=== PATIENT | female | born 1955 | race Caucasian/White ===

== ENCOUNTER 2017-03-22 11:13 | Outpatient (CLI) ==
[2015-12-15 13:51] VITALS: BMI 23.6
--- NOTE | 2017-03-22 13:22 | DEXA ---
Exam: Bone densitometry DEXA scan performed on the besomebody. device. Reason for exam: Surgical menopause. Comparison: None available. FINDINGS: Imaging was obtained of the the right and left hips and are deemed to be adequate for inte rpretation. The BMD of the left femoral neck measures 0.61 grams per centimeter squared. T-score -2.0. Z-score -0.8. The total BMD of the right hip measures 0.800 grams per centimeter squared. T-score -1.7. Z-score -0.8. Total BMD of the left hip measures 0.792 a grams per centimeter squared. T-score -1.7. Z-score 0.9. WHO classification suggests osteopenia in both hips. Impression: 1. WHO classification suggests osteopenia in both hips. 2. WHO fracture risk assessment tool (FRAX) 10-year probability of fracture percentage Major osteoporotic fracture risk 29.3%. Hip fracture risk 4.2%
--- NOTE | 2017-03-25 08:50 | MAMMO ---
EXAM: Bilateral digital screening mammogram History: Screening Comparison: Bilateral mammogram 09/19/2011 Findings: MLO and CC views of bilateral breasts demonstrate scattered fibroglandular breast parenchy ma. There are no dominant masses, no suspicious microcalcifications and no architectural distortions . Stable benign calcification within the right breast. Impression: Benign stable mammogram. Recommend followup routine screening mammography in 1 year. BIRADS 2
== END 2017-03-22 11:14 | disposition home or self-care (01) ==
LOC: RAD 11:13
PROVIDERS: ATTEND Family Medicine
DX: Z12.31 Encounter for screening mammogram for malignant neoplasm of breast (principal); E89.40 Asymptomatic postprocedural ovarian failure
CPT/HCPCS: 77067

== ENCOUNTER 2017-09-09 06:39 | Emergency (ER) ==
[2017-09-09 06:55] VITALS: BP 160/81; TEMP 98.3; BMI 55.6
[2017-09-09] MEDS ORDERED: ZOFRAN 4 MG/2 ML IVP STA (07:09)
[2017-09-09] MEDS ORDERED: POTASSIUM CHLORIDE PREMIX RUN 10 MEQ in PREMIX 100 ML WATER 1 BAG IV STA ×2 (07:54→10:51)
--- NOTE | 2017-09-09 07:55 | CT ---
EXAM: CT abdomen pelvis without contrast HISTORY: Abdominal pain with nausea and vomiting. Patient with history of prior hysterectomy, appen dectomy and cholecystectomy COMPARISON: CT abdomen 11/06/2009 TECHNIQUE: Serial axial images of the abdomen pelvis were performed from the lung bases through the inferior pelvis without contrast. These were viewed in multiple planes. FINDINGS: Lung bases are clear. Evaluation is limited due to lack of contrast. The liver is unremarkable. The gallbladder has been removed. The adrenal glands are unremarkable. There is a nonobstructing 0.3 cm right renal stone. The left kidney is unremarkable. There are surgical changes in the left retroperitoneum with clips i n place. The spleen is unremarkable. The adrenal glands are normal. The pancreas is normal. The stomach is normal. The small bowel in the abdomen pelvis is normal. The colon is unremarkable. Urinary bladder is partially distended. Pelvic soft tissues are normal. There is no free air, free fluid or lymphadenopathy. 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 IMPRESSION: 1. No acute intra-abdominal or pelvic process to account for patient's symptoms. 2. No prior cholecystectomy, hysterectomy, appendectomy and posterior surgical changes of the back. 3. Right nonobstructing renal stone.
[2017-09-09] MEDS ORDERED: POTASSIUM CHLORIDE PREMIX RUN 100 ML IV ONE ×2 (08:37→10:53)
[2017-09-09] MEDS ORDERED: SODIUM CHLORIDE 1,000 ML IV STA ×2 (08:44→10:52)
--- NOTE | 2017-09-09 09:28 | CT ---
EXAM: CT BRAIN HISTORY: Altered mental status TECHNIQUE: CT brain without intravenous contrast. 5-mm axial sections with Reformations. COMPARISON: 12/21/2010 FINDINGS: Brain is unremarkable without evidence of hemorrhage or large vessel distribution recent ischemic in farction. There is no suggestion of acute hydrocephalus or subdural fluid collection. No mass or ma ss effect. Cranium is within normal limits. Mastoid processes are aerated. The visualized paranasal sinuses a re clear. IMPRESSION: No acute intracranial process.
--- NOTE | 2017-09-09 10:19 | ED.PDOC ---
General ED Provider: Dr. HE HOLLAND Chief Complaint: Abdominal Pain Stated Complaint: ALTERED MENTAL STATUS Time Seen by Physician: 07:00 (SEEN PT AT 7 RACHEL C/O ABDOMINAL PAIN NAUSEA, SHAHANA PRESENT AT ALL TIMES ) Mode of Arrival: Ambulance Information Source: Patient Exam Limitations: No limitations Primary Care Provider: ANNA LUNA Nursing and Triage Documentation Reviewed and Agree: Yes Reviewed sepsis parameters & appropriate labs ordered?: Yes System Inflammatory Response Syndrome: Not Applicable Sepsis Protocol: For patient's 13 years and over: Temp is 96.8 and below OR 101 and greater Pulse >90 BPM Resp >20/minute Acutely Altered Mental Status Are patient's symptoms suggestive of a new infection, such as: -Pneumonia -Skin, Soft Tissue -Endocarditis -UTI -Bone, Joint Infection -Implantable Device -Acute Abdominal Infection -Wound Infection -Meningitis -Blood Stream Catheter Infection -Unknown System Inflammatory Response Syndrome: Not Applicable Neurological Complaint Exam - Altered Mental Status Complaint/Exam Current Mental Status: Confusion, Other (PRESENTED ALERT TO SELD AND PLACE DOES NOT OFFER ANY DETAIL HISTORY C/O ABDOMINAL PAIN) Last Known Well: 1 DAY AGO WAS WELL PER FAMILY REPORT Onset: Gradual Duration: 1 DAY Symptoms Are: Still present Timing: Constant Episodes Lasting: Hours Initial Severity: Moderate Current Severity: Moderate Eye Deviation Present: No Character: Reports: Confusion Aggravating: Reports: Unknown (ALL MEDS COUNTED WAS PEWRSCRIBED 96 LYRICA CAPSULES 94 REMAIN IN THE BOTTLE ) Associated Signs and Symptoms: Reports: Weakness, Nausea. Denies: Dizziness, Headache, Fever, Illness, Nuchal rigidity, Seizure, Vomiting, Recently depressed , Trauma Related History: Denies: Similar episode, Seizure, Suicidal Ideation, Homicidal Ideation, Prior attempt Cardiac Risk Factors: Reports: Hypertension CVA Risk Factors: Reports: Hypertension Related Surgical History: Reports: None Carotid Bruit Present: No Glascow Coma Scale (see protocol): 15 Nystagmus Present: No Gag Reflex Present: Yes Meningeal Signs Positive: No Focal Weakness: Present: None Focal Sensory Loss: Present: None Gait: Normal Babinski Sign: Negative Right, Negative Left Heel to Toe Normal: No (UNABLE TO PERFORM) Thrombolytics Considered: No Differential Diagnoses: Intoxication, Intracranial Bleed, Metabolic Disorder, Overdose, Medication reaction, CVA Review of Systems - Review Of Systems Constitutional: Reports: Malaise (CONFUSION, WEAKNESS UNSTEADT GAIT ) Eyes: Reports: No symptoms Ears, Nose, Mouth, Throat: Reports: No symptoms Respiratory: Reports: No symptoms Cardiac: Reports: No symptoms GI: Reports: Nausea : Reports: No symptoms Musculoskeletal: Reports: No symptoms Skin: Reports: No symptoms Neurological: Reports: Cognitive dysfunction Endocrine: Reports: No symptoms Hematologic/Lymphatic: Reports: No symptoms All Other Systems: Reviewed and Negative Past Medical History - Past Medical History Previously Healthy: Yes Endocrine: Reports: None Cardiovascular: Reports: Hypertension Respiratory: Reports: None Hematological: Reports: None Gastrointestinal: Reports: None Genitourinary: Reports: None Neuro/Psych: Reports: Anxiety, Depression Musculoskeletal: Reports: None Cancer: Reports: None Last Menstrual Period: hysterectomy at 22 y/o Other Pertinent Past Medical History: back and neck surgery - pain management - Surgical History General Surgical History: Reports: Orthopedic (back and neck surgery ), Other ( 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) - Family History Family History: Reports: Unknown - Social History Smoking Status: Current every day smoker Hx Substance Use: No Alcohol Screening: None - Immunizations Tetanus Shot up to Date: Yes (12/15/15) Physical Exam - Physical Exam Appearance: Ill-appearing Ill-appearing: Moderate Pain Distress: Moderate Eyes: DILMA, EOMI, Conjunctiva clear ENT: Dry mucosa Respiratory: Airway patent, Breath sounds clear, Breath sounds equal, Respirations nonlabored Cardiovascular: RRR, Pulses normal, No rub, No murmur GI/: Soft, Nontender, No masses, Bowel sounds normal, No Organomegaly Musculoskeletal: Normal strength, ROM intact, No edema, No calf tenderness Skin: Warm, Dry, Normal color Neurological: Alert, Oriented (TO SELF ) Psychiatric: Affect appropriate, Mood appropriate Physician Notification - Case Discussed Physician Notified: PMD Time of Notification: 11:25 (TRANSFER SOON POSSIBLE TO [facility] [place]) Critical Care Note - Critical Care Note Total Time (mins): 0 Course - Course Hematology/Chemistry: 09/09/17 07:20 09/09/17 10:10 Orders, Labs, Meds: Lab Review 09/09/17 09/09/17 09/09/17 07:20 07:20 07:20 WBC 6.47 RBC 4.42 Hgb 13.6 Hct 39.0 MCV 88.2 MCH 30.8 MCHC 34.9 RDW Coeff of Purnima 12.5 Plt Count 236 Immature Gran % (Auto) 0.2 Neut % (Auto) 75.7 Lymph % (Auto) 18.2 Fountain % (Auto) 5.4 Eos % (Auto) 0.0 Baso % (Auto) 0.5 Immature Gran # (Auto) 0.0 Neut # (Auto) 4.9 Lymph # (Auto) 1.2 Fountain # (Auto) 0.4 Eos # (Auto) 0.0 Baso # (Auto) 0.0 PT 9.8 INR 0.96 APTT 26.6 Puncture Site O2 Saturation ABG pH ABG pCO2 ABG pO2 ABG HCO3 ABG Total CO2 ABG Base Excess Oswaldo Test FiO2 % Sodium 141 Potassium 2.7 L* Chloride 103 Carbon Dioxide 21 L Anion Gap 19.7 BUN 8 Creatinine 0.74 Estimated GFR (MDRD) 80.00 BUN/Creatinine Ratio 10.81 Glucose 135 H Calcium 10.1 Magnesium Total Bilirubin 0.7 AST 17 ALT 15 Alkaline Phosphatase 84 Ammonia Total Creatine Kinase 57 Troponin I 0.0130 Total Protein 8.0 Albumin 4.2 Globulin 3.8 Albumin/Globulin Ratio 1.11 Amylase Lipase TSH Free T4 Urine Color Urine Clarity Urine pH Ur Specific [place] Urine Protein Urine Glucose (UA) Urine Ketones Urine Blood Urine Nitrite Urine Bilirubin Urine Urobilinogen Ur Leukocyte Esterase Urine Microscopic RBC Urine Microscopic WBC Ur Squamous Epith Cells Amorphous Sediment Urine Opiates Screen Ur Oxycodone Screen Urine Methadone Screen Ur Propoxyphene Screen Ur Barbiturates Screen U Tricyclic Antidepress Ur Phencyclidine Scrn Ur Amphetamine Screen U Methamphetamines Scrn U Benzodiazepines Scrn Urine Cocaine Screen U Cannabinoids Screen Plasma/Serum Alcohol < 10.0 Influ A Molecular Assay Influ B Molecular Assay 09/09/17 09/09/17 09/09/17 07:20 07:20 07:20 WBC RBC Hgb Hct MCV MCH MCHC RDW Coeff of [place] Plt Count Immature Gran % (Auto) Neut % (Auto) Lymph % (Auto) Fountain % (Auto) Eos % (Auto) Baso % (Auto) Immature Gran # (Auto) Neut # (Auto) Lymph # (Auto) Fountain # (Auto) Eos # (Auto) Baso # (Auto) PT INR APTT Puncture Site O2 Saturation ABG pH ABG pCO2 ABG pO2 ABG HCO3 ABG Total CO2 ABG Base Excess Oswaldo Test FiO2 % Sodium Potassium Chloride Carbon Dioxide Anion Gap BUN Creatinine Estimated GFR (MDRD) BUN/Creatinine Ratio Glucose Calcium Magnesium Total Bilirubin AST ALT Alkaline Phosphatase Ammonia Total Creatine Kinase Troponin I Total Protein Albumin Globulin Albumin/Globulin Ratio Amylase 30 Lipase 16 TSH Free T4 Urine Color Yellow Urine Clarity Clear Urine pH >=9.0 Ur Specific [place] 1.015 Urine Protein Trace Urine Glucose (UA) Negative Urine Ketones 1+ Urine Blood Negative Urine Nitrite Negative Urine Bilirubin Negative Urine Urobilinogen 0.2 Ur Leukocyte Esterase Negative Urine Microscopic RBC 0-2 Urine Microscopic WBC 0-2 Ur Squamous Epith Cells 0-2 Amorphous Sediment 1+ Urine Opiates Screen Ur Oxycodone Screen Urine Methadone Screen Ur Propoxyphene Screen Ur Barbiturates Screen U Tricyclic Antidepress Ur Phencyclidine Scrn Ur Amphetamine Screen U Methamphetamines Scrn U Benzodiazepines Scrn Urine Cocaine Screen U Cannabinoids Screen Plasma/Serum Alcohol Influ A Molecular Assay Negative by naat Influ B Molecular Assay Negative by naat 09/09/17 09/09/17 09/09/17 07:20 08:50 09:07 WBC RBC Hgb Hct MCV MCH MCHC RDW Coeff of [place] Plt Count Immature Gran % (Auto) Neut % (Auto) Lymph % (Auto) [place]ountain % (Auto) Eos % (Auto) Baso % (Auto) Immature Gran # (Auto) Neut # (Auto) Lymph # (Auto) [place] # (Auto) Eos # (Auto) Baso # (Auto) PT INR APTT Puncture Site O2 Saturation ABG pH ABG pCO2 ABG pO2 ABG HCO3 ABG Total CO2 ABG Base Excess Oswaldo Test FiO2 % Sodium Potassium Chloride Carbon Dioxide Anion Gap BUN Creatinine Estimated GFR (MDRD) BUN/Creatinine Ratio Glucose Calcium Magnesium Total Bilirubin AST ALT Alkaline Phosphatase Ammonia 14 Total Creatine Kinase Troponin I Total Protein Albumin Globulin Albumin/Globulin Ratio Amylase Lipase TSH 1.338 Free T4 1.32 H Urine Color Urine Clarity Urine pH Ur Specific [place] Urine Protein Urine Glucose (UA) Urine Ketones Urine Blood Urine Nitrite Urine Bilirubin Urine Urobilinogen Ur Leukocyte Esterase Urine Microscopic RBC Urine Microscopic WBC Ur Squamous Epith Cells Amorphous Sediment Urine Opiates Screen Positive Ur Oxycodone Screen Positive Urine Methadone Screen Negative Ur Propoxyphene Screen Negative Ur Barbiturates Screen Negative U Tricyclic Antidepress Positive Ur Phencyclidine Scrn Negative Ur Amphetamine Screen Negative U Methamphetamines Scrn Negative U Benzodiazepines Scrn Negative Urine Cocaine Screen Negative U Cannabinoids Screen Positive Plasma/Serum Alcohol Influ A Molecular Assay Influ B Molecular Assay 09/09/17 09/09/17 09/09/17 10:05 10:10 10:15 WBC RBC Hgb Hct MCV MCH MCHC RDW Coeff of [place] Plt Count Immature Gran % (Auto) Neut % (Auto) Lymph % (Auto) [place] % (Auto) Eos % (Auto) Baso % (Auto) Immature Gran # (Auto) Neut # (Auto) Lymph # (Auto) [place] # (Auto) Eos # (Auto) Baso # (Auto) PT INR APTT Puncture Site Rr O2 Saturation 99.0 ABG pH 7.639 H* ABG pCO2 18.3 L ABG pO2 103.0 H ABG HCO3 19.7 L ABG Total CO2 20 L ABG Base Excess -1 Oswaldo Test + FiO2 % 21.0 Sodium 140 Potassium 2.5 L* Chloride 107 Carbon Dioxide 17 L Anion Gap 18.5 BUN 8 Creatinine 0.68 Estimated GFR (MDRD) 88.00 BUN/Creatinine Ratio 11.76 Glucose 135 H Calcium 9.2 Magnesium 1.2 L Total Bilirubin AST ALT Alkaline Phosphatase Ammonia Total Creatine Kinase Troponin I Total Protein Albumin Globulin Albumin/Globulin Ratio Amylase Lipase TSH Free T4 Urine Color Urine Clarity Urine pH Ur Specific [place] Urine Protein Urine Glucose (UA) Urine Ketones Urine Blood Urine Nitrite Urine Bilirubin Urine Urobilinogen Ur Leukocyte Esterase Urine Microscopic RBC Urine Microscopic WBC Ur Squamous Epith Cells Amorphous Sediment Urine Opiates Screen Ur Oxycodone Screen Urine Methadone Screen Ur Propoxyphene Screen Ur Barbiturates Screen U Tricyclic Antidepress Ur Phencyclidine Scrn Ur Amphetamine Screen U Methamphetamines Scrn U Benzodiazepines Scrn Urine Cocaine Screen U Cannabinoids Screen Plasma/Serum Alcohol Influ A Molecular Assay Influ B Molecular Assay Orders Category Date Time Status ABG DRAW REQUEST Stat CARDIO 09/09/17 09:57 Completed EKG-(ED ONLY) Stat CARDIO 09/09/17 07:08 Completed EKG-(ED ONLY) Stat CARDIO 09/09/17 09:58 Completed ED IV/MEDIPORT/POWERPORT .ONCE EMERGENCY 09/09/17 07:08 Active ABG Stat LAB 09/09/17 10:15 Completed AMMONIA Stat LAB 09/09/17 08:50 Completed AMYLASE Stat LAB 09/09/17 07:20 Completed BLOOD ALCOHOL Stat LAB 09/09/17 07:20 Completed BMP [BASIC METABOLIC PANEL] Stat LAB 09/09/17 10:10 Completed CBC W/ AUTO DIFF Stat LAB 09/09/17 07:20 Completed COMPREHENSIVE METABOLIC PANEL Stat LAB 09/09/17 07:20 Completed CREATINE KINASE Stat LAB 09/09/17 07:20 Completed DRUG SCREEN (RAPID FOR ED) [DRUG SCREEN, URINE, RAPID] LAB 09/09/17 09:07 Completed Stat FLU A/B MOLECULAR Stat LAB 09/09/17 07:20 Completed FREE T4 (FREE THYROXINE) Stat LAB 09/09/17 07:20 Completed LIPASE Stat LAB 09/09/17 07:20 Completed MAGNESIUM Stat LAB 09/09/17 10:05 Completed PARTIAL THROMBOPLASTIN TIME Stat LAB 09/09/17 07:20 Completed PT WITH INR Stat LAB 09/09/17 07:20 Completed THYROID STIMULATING HORMONE Stat LAB 09/09/17 07:20 Completed TROPONIN I Stat LAB 09/09/17 07:20 Completed URINALYSIS C & S IF INDICATED Stat LAB 09/09/17 07:20 Completed 0.9 % Sodium Chloride [Saline Flush] MEDS 09/09/17 07:08 Active 1 syr IVF PRN PRN Ondansetron HCl/Pf [Zofran 4 mg/2 ml] MEDS 09/09/17 07:09 Discontinued 4 mg IVP ONCE STA Potassium Chloride [Potassium Chloride Premix Run] 10 MEDS 09/09/17 07:54 Discontinued meq Premix 100 ml Water 1 bag IV ONCE Potassium Chloride [Potassium Chloride Premix Run] 10 MEDS 09/09/17 10:51 Active meq Premix 100 ml Water 1 bag IV ONCE Potassium Chloride [Potassium Chloride Premix Run] 100 MEDS 09/09/17 08:37 Discontinued ml IV .STK-MED Potassium Chloride [Potassium Chloride Premix Run] 100 MEDS 09/09/17 10:53 Discontinued ml IV .STK-MED Sodium Chloride 0.9% [Sodium Chloride] 1,000 ml MEDS 09/09/17 10:52 Active IV 125 mls/hr Sodium Chloride 0.9% [Sodium Chloride] 1,000 ml MEDS 09/09/17 08:[address] ABDOMEN/PELVIS WO CONTRAST Stat RADS 09/09/17 07:[address] HEAD W/O CONTRAST Stat RADS 09/09/17 08:44 Completed Medications Generic Name Dose Route Start Last Admin Trade Name Freq PRN Reason Stop Dose Admin Potassium Chloride 10 meq/ 100 mls @ 100 mls/hr 09/09/17 10:51 09/09/17 11:01 Sterile Water IV 09/09/17 11:50 100 mls/hr ONCE STA Administration Sodium Chloride 1,000 mls @ 125 mls/hr 09/09/17 10:52 09/09/17 11:02 Sodium Chloride IV 09/09/17 18:51 125 mls/hr .Q8H STA Administration Sodium Chloride 1 syr 09/09/17 07:08 09/09/17 07:33 Saline Flush IVF 1 syr PRN PRN Administration To flush IV Discontinued Medications Generic Name Dose Route Start Last Admin Trade Name Freq PRN Reason Stop Dose Admin Potassium Chloride 10 meq/ 100 mls @ 100 mls/hr 09/09/17 07:54 09/09/17 08:10 Sterile Water IV 09/09/17 08:53 100 mls/hr ONCE STA Administration Sodium Chloride 1,000 mls @ 1,000 mls/hr 09/09/17 08:44 09/09/17 08:48 Sodium Chloride IV 09/09/17 09:43 1,000 mls/hr BOLUS STA Administration Ondansetron HCl 4 mg 09/09/17 07:09 09/09/17 07:33 Zofran 4 Mg/2 Ml IVP 09/09/17 07:10 4 mg ONCE STA Administration Vital Signs: Temp Pulse Resp BP Pulse Ox 09/09/17 06:42 98.3 F 107 H 20 160/81 H 97 Departure - Departure Time of Disposition: 12:00 Disposition: TSF SHORT-TRM HOSP Discharge Problem: Hypokalemia, Confusion Instructions: Altered Mental Status (ED) Condition: Good Pt referred to PMD for follow-up: Yes IPMP verified?: No Additional Instructions: Please call your Family Physician as soon as possible to schedule a follow-up appointment. Allergies/Adverse Reactions: Allergies codeine Adverse Reaction (Verified 09/09/17 06:52) morphine Adverse Reaction (Verified 09/09/17 06:52) Home Medications: Ambulatory Orders Hydrocodone/Acetaminophen [[place] 10-325 Tablet] 1 each PO QID PRN #14 tablet 03/23 Paroxetine HCl [Paxil] 40 mg PO DAILY 12/15/15 Pregabalin [Lyrica] 200 mg PO TID 12/15/15 Atorvastatin Calcium 40 mg PO BEDTIME 09/09/17 Potassium Chloride 10 meq PO DAILY 09/09/17
== END 2017-09-09 12:24 | disposition short-term general hospital (02) ==
LOC: ED 06:39
DX: E87.6 Hypokalemia (principal); R41.82 Altered mental status, unspecified; R10.9 Unspecified abdominal pain; R53.1 Weakness; R11.2 Nausea with vomiting, unspecified; I10 Essential (primary) hypertension; F17.210 Nicotine dependence, cigarettes, uncomplicated
CPT/HCPCS: 36415; 80048; 80053; 80306; 80307; 81001; 82140; 82150; 82550; 82803; 83690; 83735; 84439; 84443; 84484; 85025; 85610; 85730; 87502; 93005; 93010; 96365; 96366; 96375; 99285

== ENCOUNTER 2017-09-23 03:35 | Emergency (ER) ==
[2017-09-23 03:46] VITALS: BP 163/93; TEMP 99.3; BMI 23.8
[2017-09-23] MEDS ORDERED: SODIUM CHLORIDE 1,000 ML IV STA (03:58)
[2017-09-23] MEDS ORDERED: ZOFRAN 4 MG/2 ML IVP STA ×2 (03:58→07:13)
[2017-09-23] MEDS ORDERED: PHENERGAN 25 MG/ML VIAL ONE ×2 (05:06→08:02)
[2017-09-23] MEDS ORDERED: DEMEROL 50 MG/ML VIAL ONE (05:06)
[2017-09-23] MEDS ORDERED: DEMEROL 25 MG/ML VIAL IVP STA (05:19)
[2017-09-23] MEDS ORDERED: PHENERGAN 25 MG/ML VIAL 25 MG in SODIUM CHLORIDE 50 ML IV STA (05:20)
--- NOTE | 2017-09-23 06:04 | ED.PDOC ---
General ED Provider: Dr. POLLO VENTURA-ER Chief Complaint: Nausea/Vomiting Stated Complaint: i think i have the flu--vomiting and diarrhea for a few hours Time Seen by Physician: 03:40 Mode of Arrival: Walk-In Information Source: Patient Exam Limitations: No limitations Primary Care Provider: ANNA ADRIAN Nursing and Triage Documentation Reviewed and Agree: Yes Reviewed sepsis parameters & appropriate labs ordered?: Yes System Inflammatory Response Syndrome: Not Applicable Sepsis Protocol: For patient's 13 years and over: Temp is 96.8 and below OR 101 and greater Pulse >90 BPM Resp >20/minute Acutely Altered Mental Status Are patient's symptoms suggestive of a new infection, such as: -Pneumonia -Skin, Soft Tissue -Endocarditis -UTI -Bone, Joint Infection -Implantable Device -Acute Abdominal Infection -Wound Infection -Meningitis -Blood Stream Catheter Infection -Unknown GI Complaint Exam - Vomiting/Diarrhea Complaint/Exam Onset/Duration: a few hours Symptoms Are: Still present Episodes of Vomiting over last 24 Hours: 1 Initial Severity: Mild Current Severity: Mild Character of Vomiting: Reports: Non-bilious Character of Diarrhea: Reports: Watery Aggravating: Reports: Food Alleviating: Reports: None Associated Signs and Symptoms: Denies: Dizziness, Light-headedness, Melena, Hematemesis, Fever, Abdominal pain, Cramping Recent Positive Test: No Use of Oral Contraceptives: No Use of Depoprovera: No Compliant With Contraceptive Use: No Surgical Obstruction Risk Factors: Reports: None Related Surgical History: Reports: None Abdominal Findings: Present: None Kussmaul Respirations Present: Yes Differential Diagnoses: Dehydration Review of Systems - Review Of Systems Constitutional: Reports: No symptoms Eyes: Reports: No symptoms Ears, Nose, Mouth, Throat: Reports: No symptoms Respiratory: Reports: No symptoms Cardiac: Reports: No symptoms GI: Reports: Diarrhea, Nausea, Vomiting : Reports: No symptoms Musculoskeletal: Reports: No symptoms Skin: Reports: No symptoms Neurological: Reports: No symptoms Endocrine: Reports: No symptoms Hematologic/Lymphatic: Reports: No symptoms All Other Systems: Reviewed and Negative Past Medical History - Past Medical History Previously Healthy: Yes Endocrine: Reports: None Cardiovascular: Reports: Hypertension Respiratory: Reports: None Hematological: Reports: None Gastrointestinal: Reports: None Genitourinary: Reports: None Neuro/Psych: Reports: Anxiety, Depression Musculoskeletal: Reports: None Cancer: Reports: None Last Menstrual Period: at 44 years old Other Pertinent Past Medical History: back and neck surgery - pain management - Surgical History General Surgical History: Reports: Orthopedic (back and neck surgery ), Other ( 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) - Family History Family History: Reports: Unknown - Social History Smoking Status: Current every day smoker Hx Substance Use: No Alcohol Screening: None - Immunizations Tetanus Shot up to Date: Yes Physical Exam - Physical Exam Appearance: Well-appearing, No pain distress, Well-nourished Eyes: DILMA, EOMI, Conjunctiva clear ENT: Ears normal, Nose normal, Oropharynx normal Neck: Supple Respiratory: Airway patent, Breath sounds clear, Breath sounds equal, Respirations nonlabored Cardiovascular: RRR, Pulses normal, No rub, No murmur GI/: Soft, Nontender, No masses, Bowel sounds normal, No Organomegaly Musculoskeletal: Normal strength Skin: Warm, Dry, Normal color Neurological: Sensation intact Psychiatric: Affect appropriate, Mood appropriate Interpretation - Radiology Interpretation Radiology Interpretation By: Radiologist Radiology Results: Negative Exam Interpreted: CT Scan - EKG Interpretation Time of EKG #1: 06:15 Rate: Normal Rhythm: Sinus Ectopy: None [place]: [place] ST Segment: Normal Interpretation: nsr Critical Care Note - Critical Care Note Total Time (mins): 0 Course - Course Hematology/Chemistry: 09/23/17 04:05 09/23/17 04:05 Orders, Labs, Meds: Lab Review 09/23/17 09/23/17 09/23/17 04:05 04:05 04:53 WBC 11.38 H RBC 4.44 Hgb 13.8 Hct 38.5 MCV 86.7 MCH 31.1 H MCHC 35.8 H RDW Coeff of Purnima 12.5 Plt Count 365 Immature Gran % (Auto) 0.3 Neut % (Auto) 84.5 Lymph % (Auto) 11.2 [place] % (Auto) 3.9 Eos % (Auto) 0.0 Baso % (Auto) 0.1 Immature Gran # (Auto) 0.0 Neut # (Auto) 9.6 H Lymph # (Auto) 1.3 [place] # (Auto) 0.4 Eos # (Auto) 0.0 Baso # (Auto) 0.0 Sodium 139 Potassium 3.1 L Chloride 102 Carbon Dioxide 22 L Anion Gap 18.1 BUN 18 Creatinine 0.79 Estimated GFR (MDRD) 74.00 BUN/Creatinine Ratio 22.78 Glucose 139 H Calcium 10.6 H Total Bilirubin 0.5 AST 10 L ALT 10 L Alkaline Phosphatase 70 Total Creatine Kinase 15 Troponin I 0.0240 Total Protein 8.5 H Albumin 4.0 Globulin 4.5 Albumin/Globulin Ratio 0.89 Amylase 35 Lipase 18 Urine Color Urine Clarity Urine pH Ur Specific [place] Urine Protein Urine Glucose (UA) Urine Ketones Urine Blood Urine Nitrite Urine Bilirubin Urine Urobilinogen Ur Leukocyte Esterase Ur Squamous Epith Cells Amorphous Sediment Hyaline Casts Urine Mucus Influ A Molecular Assay Negative by naat Influ B Molecular Assay Negative by naat 09/23/17 05:01 WBC RBC Hgb Hct MCV MCH MCHC RDW Coeff of [place] Plt Count Immature Gran % (Auto) Neut % (Auto) Lymph % (Auto) [place] % (Auto) Eos % (Auto) Baso % (Auto) Immature Gran # (Auto) Neut # (Auto) Lymph # (Auto) [place] # (Auto) Eos # (Auto) Baso # (Auto) Sodium Potassium Chloride Carbon Dioxide Anion Gap BUN Creatinine Estimated GFR (MDRD) BUN/Creatinine Ratio Glucose Calcium Total Bilirubin AST ALT Alkaline Phosphatase Total Creatine Kinase Troponin I Total Protein Albumin Globulin Albumin/Globulin Ratio Amylase Lipase Urine Color Yellow Urine Clarity Clear Urine pH 6.0 Ur Specific [place] >=1.030 Urine Protein 2+ Urine Glucose (UA) Negative Urine Ketones 3+ Urine Blood Negative Urine Nitrite Negative Urine Bilirubin 1+ Urine Urobilinogen 0.2 Ur Leukocyte Esterase Negative Ur Squamous Epith Cells 0-2 Amorphous Sediment Trace Hyaline Casts 0-2 Urine Mucus 1+ Influ A Molecular Assay Influ B Molecular Assay Orders Category Date Time Status EKG-(ED ONLY) Stat CARDIO 09/23/17 03:57 Completed IV [ED IV/MEDIPORT/POWERPORT] .ONCE EMERGENCY 09/23/17 03:57 Active AMYLASE Stat LAB 09/23/17 04:05 Completed CBC W/ AUTO DIFF Stat LAB 09/23/17 04:05 Completed COMPREHENSIVE METABOLIC PANEL Stat LAB 09/23/17 04:05 Completed CREATINE KINASE Stat LAB 09/23/17 04:05 Completed FLU A/B MOLECULAR Stat LAB 09/23/17 04:53 Completed LIPASE Stat LAB 09/23/17 04:05 Completed MOLECULAR GROUP A STREP Stat LAB 09/23/17 04:53 Completed TROPONIN I Stat LAB 09/23/17 04:05 Completed URINALYSIS C & S IF INDICATED Stat LAB 09/23/17 05:01 Completed 0.9 % Sodium Chloride [Saline Flush] MEDS 09/23/17 03:57 Active 1 syr IVF PRN PRN Meperidine HCl/Pf [Demerol 25 mg/ml Vial] MEDS 09/23/17 05:19 Discontinued 25 mg IVP ONCE STA Meperidine HCl/Pf [Demerol 50 mg/ml Vial] MEDS 09/23/17 05:06 Discontinued 50 mg .ROUTE .STK-MED ONE Ondansetron HCl/Pf [Zofran 4 mg/2 ml] MEDS 09/23/17 03:58 Discontinued 4 mg IVP ONCE STA Ondansetron HCl/Pf [Zofran 4 mg/2 ml] MEDS 09/23/17 07:13 Discontinued 4 mg IVP ONCE STA Potassium Chloride [K-Dur] MEDS 09/23/17 06:07 Discontinued 40 meq PO ONCE STA Promethazine HCl [Phenergan 25 mg/ml Vial] MEDS 09/23/17 05:06 Discontinued 25 mg .ROUTE .STK-MED ONE Promethazine HCl [Phenergan 25 mg/ml Vial] 25 mg MEDS 09/23/17 05:20 Discontinued 0.9 % Sodium Chloride [Sodium Chloride] 50 ml IV ONCE Sodium Chloride 0.9% [Sodium Chloride] 1,000 ml MEDS 09/23/17 03:[address] ABDOMEN/PELVIS WO CONTRAST Stat RADS 09/23/17 03:58 Completed Medications Generic Name Dose Route Start Last Admin Trade Name Freq PRN Reason Stop Dose Admin Sodium Chloride 1 syr 09/23/17 03:57 Saline Flush IVF PRN PRN To flush IV Discontinued Medications Generic Name Dose Route Start Last Admin Trade Name Freq PRN Reason Stop Dose Admin Sodium Chloride 1,000 mls @ 1,000 mls/hr 09/23/17 03:58 09/23/17 04:18 Sodium Chloride IV 09/23/17 04:57 1,000 mls/hr BOLUS STA Administration Promethazine HCl 25 mg/ Sodium 51 mls @ 75 mls/hr 09/23/17 05:20 09/23/17 05: 20 Chloride IV 09/23/17 06:00 75 mls/hr ONCE STA Administration Meperidine HCl 25 mg 09/23/17 05:19 09/23/17 05:20 Demerol 25 Mg/Ml Vial IVP 09/23/17 05:20 25 mg ONCE STA Administration Ondansetron HCl 4 mg 09/23/17 03:58 09/23/17 04:16 Zofran 4 Mg/2 Ml IVP 09/23/17 03:59 4 mg ONCE STA Administration Ondansetron HCl 4 mg 09/23/17 07:13 09/23/17 07:21 Zofran 4 Mg/2 Ml IVP 09/23/17 07:14 4 mg ONCE STA Administration Potassium Chloride 40 meq 09/23/17 06:07 09/23/17 06:13 K-Dur PO 09/23/17 06:08 40 meq ONCE STA Administration Vital Signs: Temp Pulse Resp BP Pulse Ox 09/23/17 03:36 99.3 F 101 H 20 163/93 H 99 Departure - Departure Time of Disposition: 07:29 Disposition: HOME SELF-CARE Discharge Problem: Nausea Instructions: Acute Nausea and Vomiting (ED) Condition: Good Pt referred to PMD for follow-up: Yes IPMP verified?: No Additional Instructions: phenergan 25mg q 4hrs prn #6---clear liquids--call to follow up with dr adrian Allergies/Adverse Reactions: Allergies codeine Adverse Reaction (Verified 09/23/17 04:01) morphine Adverse Reaction (Verified 09/23/17 04:01) Home Medications: Ambulatory Orders Paroxetine HCl [Paxil] 20 mg PO BEDTIME 12/15/15 Pregabalin [Lyrica] 50 mg PO BID 12/15/15 Atorvastatin Calcium 40 mg PO BEDTIME 09/09/17 Potassium Chloride 20 meq PO DAILY 09/09/17 Amlodipine Besylate 5 mg PO DAILY 09/23/17 Calcium Carbonate/Vitamin D3 [Calcium 600-Vit D3 800 Caplet] 1 tab PO DAILY Hydrochlorothiazide 12.5 mg PO DAILY 09/23/17 Lactobacillus Acidophilus/Fos [Acidophilus Probiotic Tablet] 1 tab PO DAILY Levetiracetam 500 mg PO Q12H 09/23/17 Levothyroxine Sodium [Synthroid] 137 mcg PO DAILY 09/23/17 Disposition Discussed With: Patient
[2017-09-23] MEDS ORDERED: K-DUR PO STA (06:07)
--- NOTE | 2017-09-23 07:26 | CT ---
EXAM: CT Abdomen without contrast. CT Pelvis without contrast. HISTORY: Vomiting. COMPARISON: 09/09/2017. TECHNIQUE: Multiple axial images of the abdomen and pelvis were obtained without intravenous contras t. Images were reformatted in the sagittal and coronal plane. FINDINGS: Please note that evaluation of the abdominal and pelvic structures is limited due to lack of intravenous contrast. Anterior right middle lobe ground-glass opacities and small focus of nodular consolidation are new. Previous posterior lumbar interbody fusion changes from L3-L5 are stable.. Gallbladder is absent. The liver, pancreas, spleen, and adrenal glands demonstrate normal contour. Partial left nephrectomy changes noted. There is a 0.2 cm nonobstructing right renal calculus. No h ydronephrosis identified. The bowel is normal in course and caliber without evidence for obstruction or inflammatory process. The appendix is not seen. Uterus is absent. Urinary bladder is unremarkable. No free fluid or free air identified. Tiny fat-containing umbilical hernia is present. Atherosclerotic calcifications no jose. Since the prior study, there has been no significant interval change in the abdomen or pelvis. IMPRESSION: 1. No acute abnormality within the abdomen or pelvis. 2. Right basilar atelectasis or pneumonitis.
[2017-09-23] MEDS ORDERED: PHENERGAN 25 MG/ML VIAL 12.5 MG in SODIUM CHLORIDE 50 ML IV STA (07:40)
== END 2017-09-23 09:07 | disposition home or self-care (01) ==
LOC: ED 03:35
DX: R11.2 Nausea with vomiting, unspecified (principal); R19.7 Diarrhea, unspecified; I10 Essential (primary) hypertension; F17.210 Nicotine dependence, cigarettes, uncomplicated; Z79.899 Other long term (current) drug therapy
CPT/HCPCS: 36415; 80053; 81001; 82150; 82550; 83690; 84484; 85025; 87502; 87651; 93005; 93010; 96361; 96365; 96366; 96375; 96376; 99283

== ENCOUNTER 2017-11-08 16:43 | Emergency (ER) ==
[2017-11-08 16:46] VITALS: BP 174/87; TEMP 99.4; BMI 24.3
[2017-11-08] MEDS ORDERED: ZOFRAN 4 MG/2 ML IM STA (17:31)
[2017-11-08] MEDS ORDERED: SODIUM CHLORIDE 1,000 ML IV STA (17:51)
--- NOTE | 2017-11-08 18:20 | CT ---
EXAM: CT abdomen pelvis without contrast TECHNIQUE: Helical axial CT of the abdomen and pelvis was performed without contrast with coronal an d sagittal reconstructions. COMPARISON: CT abdomen pelvis from 09/23/2017, HISTORY: Abdominal pain FINDINGS: There is no acute abnormality. Specifically there is no mesenteric inflammation, free air, free fluid or bowel wall thickening or edema or pathologic lymph nodes or obstruction or ileus. The liver, spleen, pancreas,and adrenal glands show no acute abnormality. There is old granulomatous disease. Lung bases are well-aerated. There is no hiatal hernia. Gallbladder is absent. There is no biliary or pancreatic ductal dilatation. There are no suspicious renal masses or large cysts and no hydronephrosis. There has been partial lef t nephrectomy. There is a small nonobstructive stone in the upper pole calyceal system on the right. Both ureters demonstrate normal course and caliber. There is no filling defect in the urinary bladd er. There has been prior hysterectomy. The appendix is not identified. There are no inflamed colonic diverticula. There is a tiny fat conta ining umbilical hernia. There is calcific atherosclerosis of the aorta. There are no acute osseous ab normalities. There is extensive degenerative change and postoperative change seen in the lumbar spine . There is transitional lumbosacral anatomy. IMPRESSION: 1. No acute abnormality in the abdomen or pelvis. 2. Miscellaneous nonacute findings as detailed above.
--- NOTE | 2017-11-08 18:22 | DI ---
EXAM: Two-view chest HISTORY: Vomiting COMPARISON: Two-view chest 09/10/2009 FINDINGS: Cardiomediastinal silhouette is normal. Calcified lymph nodes are seen in the right parat evie region. Calcified granuloma within the right upper lobe. The lungs are mildly hyperinflated . Postoperative changes are seen within the lower cervical spine. IMPRESSION: Emphysematous changes with benign granulomatous change.
--- NOTE | 2017-11-08 18:27 | ED.PDOC ---
General ED Provider: Dr. HE HOLLAND Chief Complaint: Nausea/Vomiting Stated Complaint: ABDOMINAL PAIN Time Seen by Physician: 16:50 Mode of Arrival: Wheelchair Information Source: Patient Exam Limitations: No limitations Primary Care Provider: ANNA LUNA Nursing and Triage Documentation Reviewed and Agree: Yes Reviewed sepsis parameters & appropriate labs ordered?: Yes System Inflammatory Response Syndrome: Not Applicable Sepsis Protocol: For patient's 13 years and over: Temp is 96.8 and below OR 101 and greater Pulse >90 BPM Resp >20/minute Acutely Altered Mental Status Are patient's symptoms suggestive of a new infection, such as: -Pneumonia -Skin, Soft Tissue -Endocarditis -UTI -Bone, Joint Infection -Implantable Device -Acute Abdominal Infection -Wound Infection -Meningitis -Blood Stream Catheter Infection -Unknown System Inflammatory Response Syndrome: Not Applicable GI Complaint Exam - Abdominal Pain Complaint/Exam Onset: Gradual Duration: 1 DAY Symptoms Are: Still present Timing: Intermittent Initial Severity: Moderate Current Severity: Mild Location of Pain: Diffuse Radiates To: Denies: Chest, Back, Flank, LLQ, RLQ Character: Reports: Aching Aggravating: Reports: None Alleviating: Reports: None Associated Signs and Symptoms: Reports: Nausea. Denies: Diaphoresis, Fever, Cough, Chest pain, Dizziness, Back pain, Constipation, Blood in stool, Dysuria, Urinary frequency, Decreased urine output, Decreased appetite, Vaginal bleeding , Vaginal discharge, Vomiting, Diarrhea, Sore throat, Decreased activity Related History: Reports: Similar episode AAA Risk Factors: Reports: Hypertension Cardiac Risk Factors: Reports: Hypertension Ectopic Risk Factors: Reports: None Ovarian Torsion Risk Factors: Reports: None Surgical Obstruction Risk Factors: Reports: None Related Surgical History: Reports: None Patient Rh Status: Unknown Abdominal Findings: Present: None Differential Diagnoses: Appendicitis, Bowel Obstruction, Constipation, Diverticulitis, Gastroenteritis, Pancreatitis Review of Systems - Review Of Systems Constitutional: Reports: No symptoms Eyes: Reports: No symptoms Ears, Nose, Mouth, Throat: Reports: No symptoms Respiratory: Reports: No symptoms Cardiac: Reports: No symptoms GI: Reports: Nausea : Reports: No symptoms Musculoskeletal: Reports: No symptoms Skin: Reports: No symptoms Neurological: Reports: No symptoms Endocrine: Reports: No symptoms Hematologic/Lymphatic: Reports: No symptoms All Other Systems: Reviewed and Negative Past Medical History - Past Medical History Previously Healthy: Yes Endocrine: Reports: None Cardiovascular: Reports: Hypertension Respiratory: Reports: None Hematological: Reports: None Gastrointestinal: Reports: None Genitourinary: Reports: None Neuro/Psych: Reports: Anxiety, Depression Musculoskeletal: Reports: None Cancer: Reports: None Last Menstrual Period: n/a Other Pertinent Past Medical History: back and neck surgery - pain management - Surgical History General Surgical History: Reports: Orthopedic (back and neck surgery ), Other ( 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) - Family History Family History: Reports: Unknown - Social History Smoking Status: Current every day smoker Hx Substance Use: No Alcohol Screening: None Physical Exam - Physical Exam Appearance: Well-appearing Ill-appearing: Mild Pain Distress: Mild Eyes: DILMA, EOMI, Conjunctiva clear ENT: Ears normal, Nose normal, Oropharynx normal Respiratory: Airway patent, Breath sounds clear, Breath sounds equal, Respirations nonlabored Cardiovascular: RRR, Pulses normal, No rub, No murmur GI/: Soft, Nontender, No masses, Bowel sounds normal, No Organomegaly Musculoskeletal: Normal strength, ROM intact, No edema, No calf tenderness Skin: Warm, Dry, Normal color Neurological: Sensation intact, Motor intact, Reflexes intact, Cranial nerves intact, Alert, Oriented Psychiatric: Affect appropriate, Mood appropriate Interpretation - Radiology Interpretation Radiology Interpretation By: Radiologist Radiology Results: Negative Exam Interpreted: CXR (FOR ANY ACUTE PROCESS IN THE CHEST OR ABDOMEN) Critical Care Note - Critical Care Note Total Time (mins): 0 Course - Course Hematology/Chemistry: 11/08/17 17:19 11/08/17 17:19 Orders, Labs, Meds: Lab Review 11/08/17 11/08/17 11/08/17 17:19 17:19 17:30 WBC 7.07 RBC 4.38 Hgb 13.4 Hct 38.7 MCV 88.4 MCH 30.6 MCHC 34.6 RDW Coeff of [place]urn[place] 12.1 Plt Count 221 Immature Gran % (Auto) 0.3 Neut % (Auto) 82.3 Lymph % (Auto) 13.0 [place] % (Auto) 4.0 Eos % (Auto) 0.1 Baso % (Auto) 0.3 Immature Gran # (Auto) 0.0 Neut # (Auto) 5.8 Lymph # (Auto) 0.9 [place] # (Auto) 0.3 L Eos # (Auto) 0.0 Baso # (Auto) 0.0 Sodium 138 Potassium 3.2 L Chloride 103 Carbon Dioxide 20 L Anion Gap 18.2 BUN 9 Creatinine 0.74 Estimated GFR (MDRD) 80.00 BUN/Creatinine Ratio 12.16 Glucose 120 H Calcium 9.8 Total Bilirubin 0.6 AST 19 ALT 13 Alkaline Phosphatase 74 Total Protein 8.0 Albumin 4.2 Globulin 3.8 Albumin/Globulin Ratio 1.11 Urine Color Yellow Urine Clarity Clear Urine pH 8.5 Ur Specific [place] 1.020 Urine Protein 2+ Urine Glucose (UA) Negative Urine Ketones 4+ Urine Blood Trace-intact Urine Nitrite Negative Urine Bilirubin Negative Urine Urobilinogen 0.2 Ur Leukocyte Esterase Negative Urine Microscopic RBC 2-5 Urine Microscopic WBC 2-5 Ur Squamous Epith Cells 2-5 Urine Bacteria Trace Urine Mucus 1+ Orders Category Date Time Status ED IV/MEDIPORT/POWERPORT .ONCE EMERGENCY 11/08/17 17:52 Ordered CBC W/ AUTO DIFF Stat LAB 11/08/17 17:19 Completed COMPREHENSIVE METABOLIC PANEL Stat LAB 11/08/17 17:19 Completed URINALYSIS C & S IF INDICATED Stat LAB 11/08/17 17:30 Results 0.9 % Sodium Chloride [Saline Flush] MEDS 11/08/17 17:52 Ordered 1 syr IVF PRN PRN Ondansetron HCl/Pf [Zofran 4 mg/2 ml] MEDS 11/08/17 17:31 Discontinued 4 mg IM ONCE STA SODIUM CHLORIDE 0.9% @ 1,000 MLS/HR(1,000ml) MEDS 11/08/17 17:51 Ordered Sodium Chloride 0.9% [Sodium Chloride] 1,000 ml IV BOLUS CHEST, 2 VIEWS PA & LAT Stat RADS 11/08/17 17:[address] ABDOMEN/PELVIS WO CONTRAST Stat RADS 11/08/17 17:06 Ordered Medications Generic Name Dose Route Start Last Admin Trade Name Freq PRN Reason Stop Dose Admin Sodium Chloride 1,000 mls @ 1,000 mls/hr 11/08/17 17:51 11/08/17 18:01 Sodium Chloride IV 11/08/17 18:50 1,000 mls/hr BOLUS STA Administration Sodium Chloride 1 syr 11/08/17 17:52 11/08/17 18:01 Saline Flush IVF 1 syr PRN PRN Administration To flush IV Discontinued Medications Generic Name Dose Route Start Last Admin Trade Name Freq PRN Reason Stop Dose Admin Ondansetron HCl 4 mg 11/08/17 17:31 11/08/17 17:37 Zofran 4 Mg/2 Ml IM 11/08/17 17:32 4 mg ONCE STA Administration Vital Signs: Temp Pulse Resp BP Pulse Ox 11/08/17 16:43 99.4 F 74 16 174/87 H 99 Departure - Departure Time of Disposition: 18:26 Disposition: HOME SELF-CARE Discharge Problem: Nausea, Vomiting, Dehydration Abdominal pain Qualifiers: Abdominal location: generalized Qualified Code(s): R10.84 - Generalized abdominal pain Instructions: Dehydration (ED), Abdominal Pain (ED) Condition: Good Pt referred to PMD for follow-up: Yes IPMP verified?: No Additional Instructions: Please call your Family Physician as soon as possible to schedule a follow-up appointment. Allergies/Adverse Reactions: Allergies codeine Adverse Reaction (Verified 11/08/17 16:46) morphine Adverse Reaction (Verified 11/08/17 16:46) Home Medications: Ambulatory Orders Paroxetine HCl [Paxil] 20 mg PO BEDTIME 12/15/15 Pregabalin [Lyrica] 50 mg PO BID 12/15/15 Atorvastatin Calcium 40 mg PO BEDTIME 09/09/17 Potassium Chloride 20 meq PO DAILY 09/09/17 Amlodipine Besylate 5 mg PO DAILY 09/23/17 Calcium Carbonate/Vitamin D3 [Calcium 600-Vit D3 800 Caplet] 1 tab PO DAILY Hydrochlorothiazide 12.5 mg PO DAILY 09/23/17 Lactobacillus Acidophilus/Fos [Acidophilus Probiotic Tablet] 1 tab PO DAILY Levothyroxine Sodium [Synthroid] 137 mcg PO DAILY 09/23/17 Disposition Discussed With: Patient
== END 2017-11-08 18:57 | disposition home or self-care (01) ==
LOC: ED 16:43
DX: R11.2 Nausea with vomiting, unspecified (principal); R10.84 Generalized abdominal pain; E86.0 Dehydration; I10 Essential (primary) hypertension; F17.210 Nicotine dependence, cigarettes, uncomplicated
CPT/HCPCS: 36415; 80053; 81001; 85025; 96361; 96374; 99283

== ENCOUNTER 2018-03-08 20:24 | Emergency (ER) | payer OTHER ==
[2018-03-08] MEDS ORDERED: ATIVAN PO STA (20:50)
--- NOTE | 2018-03-08 20:51 | ED.PDOC ---
General ED Provider: Dr. TORY MORENO Chief Complaint: Hypertension Stated Complaint: Patient is a 62 year old whol comes to the ER with note blood pressure elevation at home in the 210/109. she has been under alot of stress due to recent in a cousin she is close to of her age who suddely while talking on her phone. she has been taking her blood pressure medications as prescribed. Time Seen by Physician: 20:45 Mode of Arrival: Walk-In Information Source: Patient Primary Care Provider: ANNA LUNA Nursing and Triage Documentation Reviewed and Agree: Yes Does patient meet sepsis criteria?: No If yes, has appropriate treatment been initiated?: No System Inflammatory Response Syndrome: Not Applicable Sepsis Protocol: For patient's 13 years and over: Temp is 96.8 and below OR 101 and greater Pulse >90 BPM Resp >20/minute Acutely Altered Mental Status Are patient's symptoms suggestive of a new infection, such as: -Pneumonia -Skin, Soft Tissue -Endocarditis -UTI -Bone, Joint Infection -Implantable Device -Acute Abdominal Infection -Wound Infection -Meningitis -Blood Stream Catheter Infection -Unknown Miscellaneous Complaint Exam - Complex/Multi-System Complaint/Exam Onset/Duration: 1 day Symptoms Are: Still present Meningeal Signs Positive: No Focal Weakness: Present: None Focal Sensory Loss: Present: None Gait: Normal Gag Reflex Present: No Babinski Sign: Negative Right, Negative Left Skin Findings: Present: Normal findings Joint Swelling Present: No In-Dwelling Device Present: No Review of Systems - Review Of Systems Constitutional: Reports: No symptoms Eyes: Reports: No symptoms Ears, Nose, Mouth, Throat: Reports: No symptoms Respiratory: Reports: No symptoms Cardiac: Reports: No symptoms GI: Reports: No symptoms : Reports: No symptoms Musculoskeletal: Reports: No symptoms Skin: Reports: No symptoms Neurological: Reports: Anxiety, Depressed Endocrine: Reports: No symptoms Hematologic/Lymphatic: Reports: No symptoms All Other Systems: Reviewed and Negative Past Medical History - Past Medical History Previously Healthy: Yes Endocrine: Reports: None Cardiovascular: Reports: Hypertension Respiratory: Reports: None Hematological: Reports: None Gastrointestinal: Reports: None Genitourinary: Reports: None Neuro/Psych: Reports: Anxiety, Depression Musculoskeletal: Reports: None Cancer: Reports: None Last Menstrual Period: hyst at 44 y/o Other Pertinent Past Medical History: back and neck surgery - pain management - Surgical History General Surgical History: Reports: Orthopedic (back and neck surgery ), Other ( 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) - Family History Family History: Reports: Unknown - Social History Smoking Status: Current every day smoker Hx Substance Use: Yes (marijuana occasionally) Alcohol Screening: None - Immunizations Tetanus Shot up to Date: No (unsure) Physical Exam - Physical Exam Appearance: Ill-appearing Ill-appearing: Mild Eyes: DILMA, EOMI, Conjunctiva clear ENT: Ears normal, Nose normal, Oropharynx normal Respiratory: Airway patent, Breath sounds clear, Breath sounds equal, Respirations nonlabored Cardiovascular: RRR, Pulses normal, No rub, No murmur GI/: Soft, Nontender, No masses, Bowel sounds normal, No Organomegaly Musculoskeletal: Normal strength, ROM intact, No edema, No calf tenderness Skin: Warm, Dry, Normal color Neurological: Sensation intact, Motor intact, Reflexes intact, Cranial nerves intact, Alert, Oriented Psychiatric: Anxious, Depressed Re-Evaluation - Re-Evaluation Time of Re-Evaluation: 21:15 Status: Improved Vital Signs Stable: Yes (179/81) Critical Care Note - Critical Care Note Total Time (mins): 0 Course - Course Orders, Labs, Meds: Orders Category Date Time Status Lorazepam [Ativan] MEDS 03/08/18 20:50 Discontinued 1 mg PO ONCE STA Medications Discontinued Medications Generic Name Dose Route Start Last Admin Trade Name Freq PRN Reason Stop Dose Admin Lorazepam 1 mg 03/08/18 20:50 03/08/18 20:55 Ativan PO 03/08/18 20:51 1 mg ONCE STA Administration Vital Signs: Temp Pulse Resp BP Pulse Ox 03/08/18 20:25 98.3 F 70 20 194/89 H 98 Departure - Departure Time of Disposition: 21:03 Disposition: HOME SELF-CARE Discharge Problem: Hypertensive urgency, Anxiety Instructions: Hypertension (ED), Anxiety (ED) Condition: Stable Pt referred to PMD for follow-up: No IPMP verified?: No Additional Instructions: Take medications as prescribed for Anxiety. Follow up with PCP in 3 days Prescriptions: Lorazepam [Ativan] 1 mg PO TID PRN #15 tablet PRN Reason: Anxiety Allergies/Adverse Reactions: Allergies codeine Adverse Reaction (Verified 03/08/18 20:29) morphine Adverse Reaction (Verified 03/08/18 20:29) Home Medications: Ambulatory Orders Paroxetine HCl [Paxil] 20 mg PO BEDTIME 12/15/15 Pregabalin [Lyrica] 100 mg PO BID 12/15/15 Potassium Chloride 20 meq PO DAILY 09/09/17 Amlodipine Besylate 5 mg PO DAILY 09/23/17 Calcium Carbonate/Vitamin D3 [Calcium 600-Vit D3 800 Caplet] 1 tab PO DAILY Hydrochlorothiazide 12.5 mg PO DAILY 09/23/17 Lactobacillus Acidophilus/Fos [Acidophilus Probiotic Tablet] 1 tab PO DAILY Levothyroxine Sodium [Synthroid] 137 mcg PO DAILY 09/23/17 Lorazepam [Ativan] 1 mg PO TID PRN #15 tablet 03/08/18 Tizanidine HCl [Zanaflex] 4 mg PO DAILY 03/08/18 Disposition Discussed With: Patient
[2018-03-08 21:38] VITALS: BP 194/89; TEMP 98.3; BMI 22.9
== END 2018-03-08 21:28 | disposition home or self-care (01) ==
LOC: ED 20:24
DX: I16.0 Hypertensive urgency (principal); F41.9 Anxiety disorder, unspecified; F17.210 Nicotine dependence, cigarettes, uncomplicated
CPT/HCPCS: 99282

== ENCOUNTER 2018-12-20 13:44 | Emergency (ER) | payer OTHER ==
[2018-12-20 13:59] VITALS: BP 154/79; TEMP 98.7; BMI 26.8
--- NOTE | 2018-12-20 16:12 | ED.PDOC ---
General ED Provider: Dr. POLLO RUBY Chief Complaint: Chest Wall Injury/Pain Stated Complaint: Fell and struck lt side of posterior chest wall against cabinet. Now having pain in lt side of chest Time Seen by Physician: 16:05 Mode of Arrival: Walk-In Information Source: Patient Exam Limitations: No limitations Primary Care Provider: ANNA LUNA Nursing and Triage Documentation Reviewed and Agree: Yes Does patient meet sepsis criteria?: No System Inflammatory Response Syndrome: Not Applicable Sepsis Protocol: For patient's 13 years and over: Temp is 96.8 and below OR 101 and greater Pulse >90 BPM Resp >20/minute Acutely Altered Mental Status Are patient's symptoms suggestive of a new infection, such as: -Pneumonia -Skin, Soft Tissue -Endocarditis -UTI -Bone, Joint Infection -Implantable Device -Acute Abdominal Infection -Wound Infection -Meningitis -Blood Stream Catheter Infection -Unknown Review of Systems - Review Of Systems Constitutional: Reports: No symptoms Eyes: Reports: No symptoms Ears, Nose, Mouth, Throat: Reports: No symptoms Respiratory: Reports: No symptoms Cardiac: Reports: No symptoms GI: Reports: No symptoms : Reports: No symptoms Musculoskeletal: Reports: Back pain Skin: Reports: No symptoms Neurological: Reports: No symptoms Endocrine: Reports: No symptoms Hematologic/Lymphatic: Reports: No symptoms All Other Systems: Reviewed and Negative Past Medical History - Past Medical History Previously Healthy: Yes Endocrine: Reports: None Cardiovascular: Reports: Hypertension Respiratory: Reports: None Hematological: Reports: None Gastrointestinal: Reports: None Genitourinary: Reports: None Neuro/Psych: Reports: Anxiety, Depression Musculoskeletal: Reports: None Cancer: Reports: None Last Menstrual Period: 20 years Other Pertinent Past Medical History: back and neck surgery - pain management - Surgical History General Surgical History: Reports: Orthopedic (back and neck surgery ), Other ( 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) - Family History Family History: Reports: Unknown - Social History Smoking Status: Current every day smoker Hx Substance Use: No Alcohol Screening: None - Immunizations Tetanus Shot up to Date: No Physical Exam - Physical Exam Appearance: Well-appearing, No pain distress, Well-nourished Ill-appearing: None Pain Distress: Mild Eyes: DILMA, EOMI, Conjunctiva clear ENT: Ears normal, Nose normal, Oropharynx normal Respiratory: Airway patent, Breath sounds clear, Breath sounds equal, Respirations nonlabored Cardiovascular: RRR, Pulses normal, No rub, No murmur GI/: Soft, Nontender, No masses, Bowel sounds normal, No Organomegaly Musculoskeletal: Normal strength, ROM intact, No edema, No calf tenderness Skin: Warm, Dry, Normal color Neurological: Sensation intact, Motor intact, Reflexes intact, Cranial nerves intact, Alert, Oriented Psychiatric: Affect appropriate, Mood appropriate Interpretation - Radiology Interpretation Radiology Interpretation By: ED Physician Exam Interpreted: CXR (and rib xray series neg for fracture) Critical Care Note - Critical Care Note Total Time (mins): 0 Course - Course Orders, Labs, Meds: Orders Category Date Time Status CHEST, 2 VIEWS PA & LAT Stat RADS 12/20/18 16:23 Completed RIBS, UNILATERAL LEFT Stat RADS 12/20/18 16:24 Completed Vital Signs: Temp Pulse Resp BP Pulse Ox 12/20/18 13:46 98.7 F 57 L 18 154/79 H 94 L Departure - Departure Time of Disposition: 18:15 Disposition: HOME SELF-CARE Discharge Problem: Contusion, chest wall, Left-sided chest wall pain Instructions: Costochondritis (ED), Chest Wall Pain (ED) Condition: Stable Pt referred to PMD for follow-up: Yes IPMP verified?: No Additional Instructions: Follow up with PCP Avoid heavy lifting/exercise Allergies/Adverse Reactions: Allergies codeine Adverse Reaction (Verified 12/20/18 15:47) morphine Adverse Reaction (Verified 12/20/18 15:47) Home Medications: Ambulatory Orders Paroxetine HCl [Paxil] 40 mg PO BEDTIME 12/15/15 Pregabalin [Lyrica] 100 mg PO TID 12/15/15 Amlodipine Besylate 5 mg PO DAILY 09/23/17 Calcium Carbonate/Vitamin D3 [Calcium 600-Vit D3 800 Caplet] 1 tab PO DAILY Hydrochlorothiazide 12.5 mg PO DAILY 09/23/17 Lactobacillus Acidophilus/Fos [Acidophilus Probiotic Tablet] 1 tab PO DAILY Levothyroxine Sodium [Synthroid] 137 mcg PO DAILY 09/23/17 Tizanidine HCl [Zanaflex] 4 mg PO DAILY 03/08/18 Disposition Discussed With: Patient Musculoskeletal Complaint Exam - Back Pain Complaint/Exam Mechanism of Injury: Reports: Trauma, Other (lt chest wall) Onset/Duration: 2 days Symptoms Are: Still present Timing: Constant Episodes Lasting: Hours Initial Severity: Moderate Current Severity: Moderate Location: Reports: Diffuse, Discrete Character: Reports: Sharp, Aching Aggravating: Reports: Movements, Bending, Cough Alleviating: Reports: Rest Associated Signs and Symptoms: Denies: Swelling, Redness, Bruising, Fever, Weakness, Numbness, Tingling, Abdominal pain, Flank pain, Bladder incontinence, Bowel incontinence, Weight loss, Pain with weight bearing Related History: Denies: Similar episode TAD Risk Factors: Reports: None AAA Risk Factors: Reports: None Cauda Equina Risk Factors: Reports: None Focal Tenderness: Yes Paraspinal Muscle Tenderness: Yes Paraspinal Muscle Spasm: Yes Scoliosis: No Lordosis: No Kyphosis: No SLR Test: Right Negative, Left Negative Hip Motion Testing Pain: Right Negative, Left Negative Focal Weakness: Present: None Focal Sensory Loss: Present: None Gait: Present: Normal Differential Diagnoses: Other (Rib fracture)
--- NOTE | 2018-12-20 16:45 | DI ---
Exam: Two-view chest x-ray. Date: 12/20/2018. Comparison: 11/08/2017. HISTORY: Left-sided chest wall pain following trauma. FINDINGS: Minor degenerative changes are seen in the thoracic spine. The lungs are hyperinflated. There are granulomatous calcifications. The cardiac silhouette and pulmonary vasculature are normal. Impression: No acute intrathoracic findings. Borderline emphysematous changes with vascular and gra nulomatous calcifications.
--- NOTE | 2018-12-20 16:46 | DI ---
EXAM: Two views of the left ribs HISTORY: Left-sided chest wall pain post fall. COMPARISON: Chest x-ray same day and multiple priors FINDINGS: There is no cortical irregularity or displaced fracture of the left ribs. There is no lyti c or blastic lesion. The soft tissues are unremarkable. IMPRESSION: No acute abnormality or fracture of the left ribs.
== END 2018-12-20 18:34 | disposition home or self-care (01) ==
LOC: ED 13:44
DX: S20.212A Contusion of left front wall of thorax, initial encounter (principal); W19.XXXA Unspecified fall, initial encounter; F17.210 Nicotine dependence, cigarettes, uncomplicated
CPT/HCPCS: 99283